=== PATIENT | female | born 1975 | race Caucasian/White ===

== ENCOUNTER → 2016-12-11 | Outpatient (CLI) | payer BC ==
--- NOTE | 2016-12-11 14:40 | MM ---
Reason for exam: screening (asymptomatic). Baseline mammogram. History: Family history of breast cancer in 2 grandmothers and breast cancer in aunt. Physical Findings: Nurse did not find any significant physical abnormalities on exam. MG Screening Mammo w CAD Bilateral CC and MLO view(s) were taken. The breast tissue is heterogeneously dense. This may lower the sensitivity of mammography. No suspicious calcifications are seen. Increased density inner central left breast. These results were verbally communicated with the patient and result sheet given to the patient on 12/11/16. ASSESSMENT: Incomplete: need additional imaging evaluation, BI-RAD 0 RECOMMENDATION: Special view mammogram of the left breast. If lesion persists on supplemental views, image directed ultrasound is recommended. [facility] will attempt to contact patient to return for supplemental views and ultrasound if indicated.
--- NOTE | 2016-12-11 14:41 | MM ---
Reason for exam: additional evaluation requested from abnormal screening. History: Family history of breast cancer in 2 grandmothers and breast cancer in aunt. Physical Findings: Breast exam preformed at baseline screening. MG Work Up Mamm w CAD LT LM, spot compression CC, and spot compression MLO view(s) were taken of the left breast. The breast tissue is heterogeneously dense. This may lower the sensitivity of mammography. There is no discrete abnormality including area of concern. These results were verbally communicated with the patient and result sheet given to the patient on 12/11/16. ASSESSMENT: Negative, BI-RAD 1 RECOMMENDATION: Return to routine screening mammogram schedule for both breasts.
== END | disposition home or self-care (01) ==
LOC: RADMAMWWP 13:10
PROVIDERS: ATTEND Obstetrics & Gynecology
DX: Z12.31 Encounter for screening mammogram for malignant neoplasm of breast (principal); R92.8 Other abnormal and inconclusive findings on diagnostic imaging of breast
CPT/HCPCS: G0202; G0206

== ENCOUNTER → 2017-08-29 | Outpatient (CLI) | payer BC ==
[2017-08-29 13:02] LABS: Basophils # (A) 0.1 k/uL (0-0.2); Basophils % (A) 1 %; Eosinophils # (A) 0.2 k/uL (0-0.7); Eosinophils % (A) 3 %; HCT 39.7 % (34.0-46.0); HGB 13.1 gm/dL (11.4-16.0); Lymphocytes # (A) 1.8 k/uL (1.0-4.8); Lymphocytes % (A) 23 %; MCH 30.2 pg (25.0-35.0); MCV 91.3 fL (80.0-100.0); Mean Platelet Volume 8.4; Monocytes # (A) 0.6 k/uL (0-1.0); Monocytes % (A) 7 %; Neutrophils # (A) 4.9 k/uL (1.3-7.7); Neutrophils % (A) 63 %; Platelet Count 233 k/uL (150-450); RBC 4.35 m/uL (3.80-5.40); RDW 13.9 % (11.5-15.5); WBC 7.8 k/uL (3.8-10.6)
== END | disposition home or self-care (01) ==
LOC: LABWHC1 12:25
PROVIDERS: ATTEND Obstetrics & Gynecology
DX: Z01.812 Encounter for preprocedural laboratory examination (principal); N92.0 Excessive and frequent menstruation with regular cycle; N84.0 Polyp of corpus uteri
CPT/HCPCS: 36415; 85025

== ENCOUNTER 2017-09-16 09:46 | Day surgery (SDC) | payer BC ==
[2017-09-06 18:17] VITALS: BMI 29.8
--- NOTE | 2017-09-12 17:51 | HP ---
HISTORY AND PHYSICAL DATE OF PROCEDURE: 09/16/2017. HISTORY: This is a 41-year-old 6, para 5-0-1-5 woman with a longstanding history of menorrhagia. She desires surgical management in the form of NovaSure ablation. Her periods are regular, once per month; however, they last 5-7 days and are very heavy. She underwent endometrial biopsy which showed benign endometrium as well as pelvic ultrasound which showed a normal uterus and ovaries. There was a very small hyperechoic area measuring 4 mm in the endometrium that is possibly a small polyp versus clot or debris. ALLERGIES: NONE. MEDICATIONS: 1. Celexa 20 mg daily. 2. Testosterone 150 mg pellet q.4 months. 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 PAST MEDICAL HISTORY: 1. Menorrhagia. 2. Thyroid disorder. 3. Mild depression. PAST SURGICAL HISTORY: section in 2004. 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 No history of abnormal Pap smears or STDs. SOCIAL HISTORY: She is . Negative tobacco, alcohol and drug use. FAMILY HISTORY: Significant for grandmother with breast cancer. REVIEW OF SYSTEMS: Positive for fatigue, menorrhagia, dysmenorrhea and weight gain. Remainder of review of systems negative. PHYSICAL EXAMINATION: Blood pressure 112/66, pulse 93, height 5 feet 6 inches, weight 191 pounds. In general, this is a pleasant female in no apparent distress. HEENT exam is unremarkable with no palpable lymphadenopathy or thyromegaly. The lungs are clear to auscultation bilaterally. Heart has a regular rate and rhythm. The abdomen is slim, soft and nontender. On pelvic examination, she has normal female external genitalia without lesions or irritation. On speculum examination, the cervix appears grossly normal. On bimanual exam, the uterus is small, freely mobile and in the midline. There are no adnexal abnormalities appreciated. On neurologic exam, she is grossly intact with no focal deficits. Mood and affect are within normal limits. ASSESSMENT: [id number] 6, para 5 woman with menorrhagia who desires definitive surgical management. She is scheduled to undergo NovaSure endometrial ablation with diagnostic hysteroscopy. The procedure, anticipated recovery time and possible risks have been reviewed with the patient in detail. Risks include but are not limited to bleeding, transfusion, infection, uterine perforation with damage to pelvic or abdominal structures. The patient understands these risks and agrees to proceed. She is scheduled for the above-named procedure on 09/16/2017. MMODL / IJN: [id number] /
[~2017-09-16 09:46] MED LIST: DEXAMETHASONE SOD PHOSPHATE 10 MG/ML 1 ML VIAL IV ONE; HYDROmorphone 0.5 MG/0.5 ML SYRINGE IVP PRN; LACTATED RINGERS 1,000 ML IV SCH; MORPHINE SULFATE 4 MG/ML SYRINGE IV PRN; ONDANSETRON 4 MG/2 ML VIAL IVP ONE; ONDANSETRON 4 MG/2 ML VIAL IVP PRN
[2017-09-16] MEDS ORDERED: LIDOCAINE 1% 20 ML VIAL (10MG/ML) FOR IV START INTRADERMA ONE (09:58)
[2017-09-16] MEDS ORDERED: DEXAMETHASONE SOD PHOS (MDV) 100 MG/10 ML VIAL IV ONE (09:59)
[2017-09-16] MEDS ORDERED: KETOROLAC 30 MG/ML 1 ML VIAL ONE (11:04)
[2017-09-16] MEDS ORDERED: MIDAZOLAM 2 MG/2 ML VIAL ONE (11:04)
[2017-09-16] MEDS ORDERED: PROPOFOL 10 MG/ML 20 ML VIAL IV ONE (11:04)
[2017-09-16] MEDS ORDERED: fentaNYL (PF) 50 MCG/ML 2 ML AMP ONE (11:04)
[2017-09-16] MEDS ORDERED: LIDOCAINE 1% INJ 10MG/ML (20 ML MDV) ONE (11:04)
[2017-09-16] MEDS ORDERED: LIDOCAINE 1%/EPI 1:200,000 MPF 10 ML VIAL SUBMUCOSAL ONE (11:17)
--- NOTE | 2017-09-16 11:32 | P.OP ---
Date of Procedure: 09/16/17 Preoperative Diagnosis: dysfunctional uterine bleeding Postoperative Diagnosis: Same Procedure(s) Performed: Diagnostic hysteroscopy and NovaSure endometrial ablation Anesthesia: MAC Surgeon: Danna Luevano Estimated Blood Loss (ml): 0 IV fluids (ml): 300 Urine output (ml): 25 Pathology: none sent Condition: stable Disposition: PACU Operative Findings: Nabothian cyst of the cervix. Normal intrauterine cavity Description of Procedure: After the patient and her were met in the preoperative holding area and all questions were answered, she was taken to the operating room where anesthetic was administered without incident. She was then positioned, prepped and draped in the dorsal lithotomy position. Bladder was drained for approximately 25 mL of clear urine. Speculum was placed in the vagina and the cervix was grasped anteriorly with a single-tooth tenaculum. She was noted to have a approximately 1 cm on nabothian cyst at the 9 o'clock position. The uterus was sounded to 8 cm. Paracervical block with lidocaine plus epinephrine was placed in the usual fashion. Cervix was dilated to allow for passage of the diagnostic hysteroscope. The hysteroscope was introduced and a normal intrauterine cavity was noted. Bilateral tubal ostia were appreciated. Hysteroscope was removed and the cervix was further dilated to allow for passage of the NovaSure ablation device. The device was inserted with a cavity length of 4.5 cm and a width of 2.5 cm. Cavity assessment test was passed. The device was enabled for a treatment cycle of the 124 seconds with a power of 62 W. Following cessation of the treatment cycle the device was removed and the hysteroscope was reintroduced. Complete desiccation of the endometrium was appreciated. Hysteroscope was removed as were the instruments from the cervix. Cervix was observed and no active bleeding was noted. Speculum was removed and the patient was awoken from anesthetic without incident. She was transported recovery area in stable condition. All counts reported to me as correct by the operating room staff.
[2017-09-16 11:42] VITALS: TEMP 96.9
[2017-09-16] MEDS ORDERED: HYDROmorphone 1 MG/ML 1 ML SYRINGE IVP ONE (12:23)
[2017-09-16 12:57] VITALS: RESP 18
[2017-09-16] MEDS ORDERED: ACETAMINOPHEN TAB 325 MG TAB PO ONE (13:36)
[2017-09-16] MEDS ORDERED: ONDANSETRON 4 MG/2 ML VIAL IVP ONE (14:07)
[2017-09-16 15:16] VITALS: PULSE 52
[2017-09-16] MEDS ORDERED: HYDROcodone/APAP 5-325MG 1 EACH TAB PO ONE (15:51)
[2017-09-16] MEDS ORDERED: LACTATED RINGERS 1,000 ML IV ONE (15:52)
[2017-09-16 16:49] VITALS: BP 98/60
== END 2017-09-16 17:34 | disposition home or self-care (01) ==
LOC: OR 09:46
PROVIDERS: ATTEND Obstetrics & Gynecology
DX: N92.0 Excessive and frequent menstruation with regular cycle (principal); N88.8 Other specified noninflammatory disorders of cervix uteri; F32.9 Major depressive disorder, single episode, unspecified; E07.9 Disorder of thyroid, unspecified; Z79.890 Hormone replacement therapy; Z79.899 Other long term (current) drug therapy
CPT/HCPCS: 58563; 81025; J2250; J2405; J2001; J3010; J1885; J1170; J1100; J2704

== ENCOUNTER → 2017-12-18 | Outpatient (CLI) | payer BC | LOC: LABWHC1 08:35 | PROVIDERS: ATTEND Obstetrics & Gynecology | DX: E34.9 Endocrine disorder, unspecified (principal); Z78.0 Asymptomatic menopausal state | CPT/HCPCS: 36415; 82670; 83001; 84403 ==

== ENCOUNTER → 2018-01-07 | Outpatient (CLI) | payer BC ==
--- NOTE | 2018-01-08 11:28 | MM ---
Reason for exam: screening (asymptomatic). Last mammogram was performed 1 year and 1 month ago. History: Family history of breast cancer in 2 grandmothers and breast cancer in aunt. Physical Findings: A clinical breast exam by your physician is recommended on an annual basis and results should be correlated with mammographic findings. MG Screening Mammo w CAD Bilateral CC and MLO view(s) were taken. Prior study comparison: December 11, 2016, left breast MG work up mamm w CAD LT. December 11, 2016, bilateral MG screening mammo w CAD. The breast tissue is heterogeneously dense. This may lower the sensitivity of mammography. Focal asymmetry upper outer left breast 6.2cm from nipple. This finding is changed when compared with previous exams. ASSESSMENT: Incomplete: need additional imaging evaluation, BI-RAD 0 RECOMMENDATION: Special view mammogram of the left breast. If lesion persists on supplemental views, image directed ultrasound is recommended. [facility] will attempt to contact patient to return for supplemental views and ultrasound if indicated.
== END | disposition home or self-care (01) ==
LOC: RADMAMWWP 11:23
PROVIDERS: ATTEND Obstetrics & Gynecology
DX: Z12.31 Encounter for screening mammogram for malignant neoplasm of breast (principal); Z80.3 Family history of malignant neoplasm of breast
CPT/HCPCS: 77067

== ENCOUNTER → 2018-01-20 | Outpatient (CLI) | payer BC ==
--- NOTE | 2018-01-20 14:06 | MM ---
Reason for exam: additional evaluation requested from abnormal screening. Last mammogram was performed less than 1 month ago. History: Family history of breast cancer in maternal grandmother at age 33, breast cancer in paternal grandmother, and breast cancer in aunt. Took other hormone for 1 year beginning at age 41. Physical Findings: Nurse did not find any significant physical abnormalities on exam. MG Work Up Mamm w CAD LT CC and MLO view(s) were taken of the left breast. Prior study comparison: January 07, 2018, bilateral MG screening mammo w CAD. December 11, 2016, left breast MG work up mamm w CAD LT. There is no discrete abnormality including area of concern. These results were verbally communicated with the patient and result sheet given to the patient on 01/20/18. ASSESSMENT: Negative, BI-RAD 1 RECOMMENDATION: Return to routine screening mammogram schedule for both breasts. Manage patient on a clinical basis.
== END | disposition home or self-care (01) ==
LOC: RADMAMWWP 13:19
PROVIDERS: ATTEND Obstetrics & Gynecology
DX: R92.8 Other abnormal and inconclusive findings on diagnostic imaging of breast (principal)
CPT/HCPCS: 77065

== ENCOUNTER → 2018-05-15 | Outpatient (CLI) | payer BC ==
--- NOTE | 2018-05-15 16:42 | FL ---
EXAMINATION: Cervical and Thoracic Esophagram DATE OF EXAM: 05/15/2018 CLINICAL INDICATION: 42-year-old female with dysphagia, hoarseness for one year, scope demonstrated w hen patient is describing as a possible vocal fold polyp. Total fluoroscopy time: 1 minute 44 seconds. Total images: 20 COMPARISON: None FINDINGS: The swallowing mechanism is normal and hypopharyngeal anatomy is preserved. The cervical and thoracic portions have a normal course and caliber and normal motility. The mucosa is normal and no persistent filling defect is encountered. No hiatal hernia is present. Valsalva and positional maneuvers failed to demonstrate gastroesophageal reflux. However, an episode of mild reflux was encountered when the patient relaxed in the supine po sition. IMPRESSION: No evident hiatal hernia. However, a single episode of mild gastroesophageal reflux is demonstrated w hen the patient is supine.
== END | disposition home or self-care (01) ==
LOC: RADFLWHC 10:50
PROVIDERS: ATTEND Otolaryngology
DX: K21.9 Gastro-esophageal reflux disease without esophagitis (principal)
CPT/HCPCS: 74220

== ENCOUNTER → 2019-01-26 | Outpatient (CLI) | payer BC ==
--- NOTE | 2019-01-28 14:13 | MM ---
Reason for exam: screening (asymptomatic). Last mammogram was performed 1 year ago. History: Family history of breast cancer in maternal grandmother at age 33, breast cancer in paternal grandmother at age 50, and breast cancer in aunt. Took other hormone for 1 year beginning at age 41. Physical Findings: A clinical breast exam by your physician is recommended on an annual basis and results should be correlated with mammographic findings. MG 3D Screening Mammo W/Cad Bilateral CC and MLO view(s) were taken. Prior study comparison: January 20, 2018, left breast MG work up mamm w CAD LT. January 07, 2018, bilateral MG screening mammo w CAD. The breast tissue is extremely dense which could obscure a lesion on mammography. No suspicious abnormality. No significant new finding when compared with prior studies. ASSESSMENT: Negative, BI-RAD 1 RECOMMENDATION: Routine screening mammogram of both breasts in 1 year.
== END | disposition home or self-care (01) ==
LOC: RADMAMWWP 10:28
PROVIDERS: ATTEND Obstetrics & Gynecology
DX: Z12.31 Encounter for screening mammogram for malignant neoplasm of breast (principal)
CPT/HCPCS: 77063; 77067

== ENCOUNTER → 2019-10-01 | Outpatient (CLI) | payer BC ==
[2019-10-01 15:54] LABS: Follicle Stimulating Hormone 4.4 mIU/mL
== END | disposition home or self-care (01) ==
LOC: LABWHC1 08:59
PROVIDERS: ATTEND Obstetrics & Gynecology
DX: E03.9 Hypothyroidism, unspecified (principal); E34.50 Androgen insensitivity syndrome, unspecified; R53.83 Other fatigue; R37 Sexual dysfunction, unspecified
CPT/HCPCS: 36415; 83001; 84402; 84403; 84436; 84443; 84481

== ENCOUNTER 2020-01-05 15:52 | Emergency (ER) | payer BC ==
[2020-01-05 16:04] VITALS: TEMP 99
[2020-01-05] MEDS ORDERED: ACETAMINOPHEN TAB 325 MG TAB PO STA (16:04)
[2020-01-05] MEDS ORDERED: LIDOCAINE 1% INJ 10MG/ML (20 ML MDV) SQ ONE (16:04)
[2020-01-05] MEDS ORDERED: DIPH,PERTUS(ACELL)TETVAC-LF 0.5 ML VIAL IM ONE (16:04)
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
[2020-01-05] MEDS ORDERED: KETOROLAC 60 MG/2 ML VIAL IM STA (18:25)
[2020-01-05 18:42] VITALS: BP 124/77; PULSE 82; RESP 18
== END 2020-01-05 18:41 | disposition home or self-care (01) ==
LOC: EC 15:52
DX: S06.0X9A Concussion with loss of consciousness of unspecified duration, initial encounter (principal); S01.81XA Laceration without foreign body of other part of head, initial encounter; S60.812A Abrasion of left wrist, initial encounter; S60.811A Abrasion of right wrist, initial encounter; S50.311A Abrasion of right elbow, initial encounter; Z23 Encounter for immunization; E03.9 Hypothyroidism, unspecified; F41.9 Anxiety disorder, unspecified; Z79.899 Other long term (current) drug therapy; Z79.890 Hormone replacement therapy; V11.4XXA Pedal cycle driver injured in collision with other pedal cycle in traffic accident, initial encounter; Y93.55 Activity, bike riding; Y92.410 Unspecified street and highway as the place of occurrence of the external cause
CPT/HCPCS: 73110; 73080; 73090; 72125; 70486; 70450; 90715; 99284; 12002; 90471; 96372; J2001; J1885